=== PATIENT | female | born 1970 | race Caucasian/White ===

== ENCOUNTER 2020-11-11 19:11 | Emergency (ER) | payer BC, OTHER ==
[~2020-11-11] VITALS: Ht 165.1 cm; Wt 68.0 kg
[2020-11-11 19:15] VITALS: BP_SYST 134
[2020-11-11] MEDS: METOCLOPRAMIDE HCL 10 MG/2 ML VIAL IVP ONE (20:46)
[2020-11-11] MEDS: NACL 0.9% 1,000 ML IV ONE (20:47)
[2020-11-11] MEDS: DIPHENHYDRAMINE INJ 50 MG/ML VIAL IVP ONE (20:50)
[2020-11-11] MEDS ORDERED: CYCL-10 PO (22:38)
[2020-11-11] MEDS ORDERED: METO-290 PO (22:38)
[2020-11-11 22:55] VITALS: BP_SYST 113
[2020-11-11] MEDS: CYCLOBENZAPRINE HCL 10 MG TABLET (FLEXERIL) PO ONE (23:05)
== END 2020-11-11 22:55 | disposition home or self-care (01) ==
LOC: SED 19:11
DX: S13.9XXA Sprain of joints and ligaments of unspecified parts of neck, initial encounter (principal); G44.209 Tension-type headache, unspecified, not intractable; X50.1XXA Overexertion from prolonged static or awkward postures, initial encounter; Y93.89 Activity, other specified; Y92.89 Other specified places as the place of occurrence of the external cause; Y99.8 Other external cause status
CPT/HCPCS: 70450; 76376; 96361; 96374; 96375; 99284; J1200; J2765; J7030